=== PATIENT | female | born 1990 | race Caucasian/White ===

== ENCOUNTER 2020-06-23 14:45 | Inpatient (IN) | payer BC ==
[2020-06-23] MEDS ORDERED: AMPICILLIN - 2 GM in SODIUM CHLORIDE 100 ML IVPB ONE (15:20)
[2020-06-23] MEDS: ELECTROLYTE-148 SOLN 1,000 ML IV SCH (15:45)
[2020-06-23] MEDS ORDERED: AMPICILLIN SODIUM 2 GM VIAL ONE (15:46)
[2020-06-23 15:54] VITALS: BMI 30.2
[2020-06-23 16:03] LABS: BASO % 0.3 % (0-2.0); EOS % 0.2 % (0-4.5); HEMATOCRIT 36.5 % (32.4-45.2); HEMOGLOBIN 12.5 GM/dL (10.7-15.3); LYMPH % 12.8 % (8-40); MCH 30.7 pg (25.7-33.7); MCHC 34.3 g/dl (32.0-36.0); MEAN CELL VOLUME 89.4 fl (80-96); MEAN PLT VOLUME 9.3 fl (7.5-11.1); MONO % 5.1 % (3.8-10.2); NEUT % 81.6 % (42.8-82.8); PLATELET COUNT 186 K/MM3 (134-434); RBC 4.08 M/mm3 (3.60-5.2); RDW 13.9 % (11.6-15.6); WHITE BLOOD COUNT 8.5 K/mm3 (4.0-10.0)
[2020-06-23 16:10] LABS: INR 0.93 (0.83-1.09); PROTHROMBIN TIME (PATIENT) 11.5 SEC (9.7-13.0)
[2020-06-23 16:13] LABS: ACTIVATED PTT 23.9 SECONDS (25.2-36.5)
[2020-06-23 16:31] LABS: POTASSIUM 3.9 mmol/L (3.5-5.1)
[2020-06-23 16:32] LABS: CALCIUM 8.9 mg/dL (8.5-10.1)
[2020-06-23 16:33] LABS: BLOOD UREA NITROGEN 9.6 mg/dL (7-18)
[2020-06-23 16:36] LABS: CREATININE 0.6 mg/dL (0.55-1.3)
[2020-06-23] MEDS ORDERED: OXYTOCIN 30 UNITS in 0.9% NS 30 UNIT/500 ML INFUS.BAG IVPB ONE (17:22)
[2020-06-23] MEDS: OXYTOCIN 30 UNITS in 0.9% NS 30 UNIT/500 ML INFUS.BAG IVPB SCH (17:25)
[2020-06-23] MEDS ORDERED: AMPICILLIN SODIUM 1 GM VIAL ONE (19:38)
[2020-06-23] MEDS: AMPICILLIN - 1 GM in SODIUM CHLORIDE 100 ML IVPB SCH (19:42)
[2020-06-23] MEDS ORDERED: OXYTOCIN 20 UNITS in 0.9% NS 20 UNIT/1,000 ML INFUS.BAG IV ONE (23:07)
[2020-06-23] MEDS: OXYTOCIN 20 UNITS in 0.9% NS 20 UNIT/1,000 ML INFUS.BAG IV SCH (23:15)
[2020-06-23] MEDS: METHYLERGONOVINE MALEATE 0.2 MG/1 ML AMP IM PRN (23:24)
[2020-06-23] MEDS ORDERED: BENZOCAINE 20% 57 GM BOTTLE TP PRN (23:37)
[2020-06-23] MEDS ORDERED: BISACODYL 10 MG SUPP.RECT RC PRN (23:37)
[2020-06-23] MEDS ORDERED: BENZOCAINE 28 GM HEMORRHOIDAL OINTMENT TP SCH (23:45)
[2020-06-23] MEDS ORDERED: BENZOCAINE 28 GM HEMORRHOIDAL OINTMENT TP PRN (23:45)
[2020-06-23] MEDS ORDERED: WITCH HAZEL 50% (TUCKS) 40 PAD/JAR PAD TP PRN (23:45)
[2020-06-24 00:20] LABS: CORD PCO2 37.3 mmHg (30-78); CORD pH 7.347 (7.14-7.44)
[2020-06-24 00:22] LABS: CORD BASE EXCESS -3.9 mmol/L (0-2); CORD PCO2 48.7 mmHg (30-78); CORD pH 7.292 (7.14-7.44)
[2020-06-24] MEDS: METHYLERGONOVINE MALEATE 0.2 MG/1 ML AMP IM PRN (02:46)
[2020-06-24 03:21] LABS: BASO % 0.2 % (0-2.0); EOS % 0.1 % (0-4.5); HEMATOCRIT 39.3 % (32.4-45.2); LYMPH % 6.7 % (8-40); MCH 29.8 pg (25.7-33.7); MCHC 33.2 g/dl (32.0-36.0); MEAN CELL VOLUME 89.9 fl (80-96); MEAN PLT VOLUME 9.7 fl (7.5-11.1); MONO % 4.7 % (3.8-10.2); NEUT % 88.3 % (42.8-82.8); PLATELET COUNT 180 K/MM3 (134-434); RBC 4.37 M/mm3 (3.60-5.2); RDW 13.9 % (11.6-15.6); WHITE BLOOD COUNT 16.7 K/mm3 (4.0-10.0)
[2020-06-24 03:27] LABS: INR 0.95 (0.83-1.09); PROTHROMBIN TIME (PATIENT) 11.7 SEC (9.7-13.0)
[2020-06-24 03:30] LABS: ACTIVATED PTT 24.6 SECONDS (25.2-36.5)
[2020-06-24] MEDS ORDERED: OXYTOCIN 20 UNITS in 0.9% NS 20 UNIT/1,000 ML INFUS.BAG IV ONE ×2 (04:45→16:14)
[2020-06-24 06:43] LABS: BASO % 0.5 % (0-2.0); EOS % 0.1 % (0-4.5); HEMATOCRIT 36.8 % (32.4-45.2); HEMOGLOBIN 12.3 GM/dL (10.7-15.3); LYMPH % 8.7 % (8-40); MCH 29.5 pg (25.7-33.7); MCHC 33.5 g/dl (32.0-36.0); MEAN CELL VOLUME 88.1 fl (80-96); MEAN PLT VOLUME 9.3 fl (7.5-11.1); MONO % 4.3 % (3.8-10.2); NEUT % 86.4 % (42.8-82.8); PLATELET COUNT 180 K/MM3 (134-434); RBC 4.18 M/mm3 (3.60-5.2); WHITE BLOOD COUNT 15.1 K/mm3 (4.0-10.0)
[2020-06-24] MEDS: AMPICILLIN - 1 GM in SODIUM CHLORIDE 100 ML IVPB SCH ×5 (07:29→22:05)
[2020-06-24] MEDS ORDERED: ceFAZolin 2 GRAM PREMIX BAG IVPB ONE (07:30)
[2020-06-24] MEDS ORDERED: CEFAZOLIN 2 GM/D5W 2 GM/50 ML ML IVPB ONE (10:07)
[2020-06-24] MEDS ORDERED: IBUPROFEN 600 MG TABLET (FP) PO ONE (10:46)
[2020-06-24] MEDS ORDERED: ACETAMINOPHEN 325 MG TABLET (FP) ONE ×2 (10:46→16:46)
[2020-06-24] MEDS: IBUPROFEN 600 MG TABLET (FP) PO PRN ×2 (10:50→21:28)
[2020-06-24] MEDS: ACETAMINOPHEN 325 MG TABLET (FP) PO PRN ×3 (10:50→21:27)
[2020-06-24 13:18] LABS: BASO % 0.4 % (0-2.0); EOS % 0.2 % (0-4.5); HEMATOCRIT 34.8 % (32.4-45.2); HEMOGLOBIN 11.6 GM/dL (10.7-15.3); LYMPH % 10.2 % (8-40); MCH 29.4 pg (25.7-33.7); MCHC 33.3 g/dl (32.0-36.0); MEAN CELL VOLUME 88.2 fl (80-96); MEAN PLT VOLUME 9.2 fl (7.5-11.1); MONO % 4.7 % (3.8-10.2); NEUT % 84.5 % (42.8-82.8); PLATELET COUNT 178 K/MM3 (134-434); RBC 3.95 M/mm3 (3.60-5.2); RDW 13.9 % (11.6-15.6); WHITE BLOOD COUNT 11.7 K/mm3 (4.0-10.0)
[2020-06-24 14:53] LABS: POTASSIUM 3.9 mmol/L (3.5-5.1)
[2020-06-24 14:55] LABS: CALCIUM 8.1 mg/dL (8.5-10.1)
[2020-06-24 14:56] LABS: ALBUMIN 2.2 g/dl (3.4-5.0); BLOOD UREA NITROGEN 6.8 mg/dL (7-18)
[2020-06-24 14:59] LABS: CREATININE 0.4 mg/dL (0.55-1.3)
[2020-06-24 15:00] LABS: BILIRUBIN,TOTAL 0.3 mg/dL (0.2-1)
[2020-06-24] MEDS: OXYTOCIN 30 UNITS in 0.9% NS 30 UNIT/500 ML INFUS.BAG IVPB SCH (15:50)
[2020-06-24] MEDS: ELECTROLYTE-148 SOLN 1,000 ML IV SCH (15:50)
[2020-06-25] MEDS ORDERED: KETOROLAC TROMETHAMINE 30 MG/1 ML VIAL IM ONE (06:30)
[2020-06-25] MEDS ORDERED: KETOROLAC TROMETHAMINE 30 MG/1 ML VIAL IVPB ONE (06:45)
[2020-06-25] MEDS: IBUPROFEN 600 MG TABLET (FP) PO PRN ×2 (13:37→20:32)
[2020-06-25] MEDS: ACETAMINOPHEN 325 MG TABLET (FP) PO PRN ×2 (13:38→20:32)
[2020-06-25] MEDS: ELECTROLYTE-148 SOLN 1,000 ML IV SCH (16:44)
[2020-06-25] MEDS: OXYTOCIN 30 UNITS in 0.9% NS 30 UNIT/500 ML INFUS.BAG IVPB SCH (16:44)
[2020-06-25] MEDS ORDERED: BISACODYL 10 MG SUPP.RECT PR ONE (19:57)
[2020-06-25] MEDS: AMPICILLIN - 1 GM in SODIUM CHLORIDE 100 ML IVPB SCH ×3 (20:31→23:45)
[2020-06-25] MEDS: OXYTOCIN 20 UNITS in 0.9% NS 20 UNIT/1,000 ML INFUS.BAG IV SCH (23:45)
[2020-06-26] MEDS: AMPICILLIN - 1 GM in SODIUM CHLORIDE 100 ML IVPB SCH (04:58)
[2020-06-26 12:07] VITALS: BP 119/76; PULSE 103; TEMP 98.2
== END 2020-06-26 12:05 | disposition home or self-care (01) | DRG 806 ==
LOC: JLDR 14:45 → J3W 06-24 17:45
PROVIDERS: ADMIT Obstetrics & Gynecology; ATTEND Obstetrics & Gynecology
PROC: 10E0XZZ Delivery of Products of Conception, External Approach (ICD-10-PCS; principal; 2020-06-23)
PROC: 0W8NXZZ Division of Female Perineum, External Approach (ICD-10-PCS; 2020-06-23)
DX: O42.02 Full-term premature rupture of membranes, onset of labor within 24 hours of rupture (principal); O72.1 Other immediate postpartum hemorrhage; Z37.0 Single live birth; O70.0 First degree perineal laceration during delivery; O69.81X0 Labor and delivery complicated by cord around neck, without compression, not applicable or unspecified; O90.89 Other complications of the puerperium, not elsewhere classified; R31.0 Gross hematuria; Z3A.38 38 weeks gestation of pregnancy
CPT/HCPCS: 36415; 36600; 59409; 74178-TC; 80048; 80053; 82803; 85025; 85246; 85247; 85291; 85384; 85610; 85730; 86780; 86850; 86900; 86901; 86922; C9803; Q9967; U0003